=== PATIENT | male | born 1985 | race Two or more races ===

== ENCOUNTER 2023-05-06 18:23 | Emergency (ER) | payer OTHER ==
[~2023-05-06] VITALS: Ht 175.3 cm; Wt 81.0 kg
[2023-05-06 19:27] LABS: Mean Corpuscular Volume 78.2 fL (80.0-100.0)
[2023-05-06 19:29] LABS: Hematocrit 47.3 % (41.0-53.0); Hemoglobin 15.6 g/dL (13.5-17.5); Mean Corpuscular Hemoglobin 25.8 pg (28.0-32.0); Mean Corpuscular Hgb Conc. 32.9 g/dL (32.0-36.0); Red Blood Cells 6.04 10^6/uL (4.5-5.90); Red Cell Distribution Width 13.5 % (11.8-14.3); White Blood Cell 6.4 10^3/uL (4.4-10.8)
[2023-05-06 19:35] LABS: Basophils % (manual) 0 (0.0-2.0); Blast Cells 0; Eosinophils % (manual) 0 (0-7); Metamyelocytes % 0; Myelocytes % 0; Promyelocytes % 0; Reactive Lymphocytes 0
[2023-05-06 19:49] LABS: Alanine Aminotransferase 30 U/L (7-40); Albumin 3.9 g/dL (3.2-4.8); Alkaline Phosphatase 74 U/L (46-116); Anion Gap 5 (5-15); Aspartate Aminotransferase 35 U/L (13-40); BUN/Creatinine Ratio 5.5 (10.0-20.0); Bilirubin, Total 0.3 mg/dL (0.2-1.0); Blood Urea Nitrogen 6 mg/dL (9-23); Calcium 8.5 mg/dL (8.7-10.4); Carbon Dioxide 31 mmol/L (20-30); Chloride 96 mmol/L (98-107); Glucose 93 mg/dL (74-106); Potassium 3.1 mmol/L (3.5-5.1); Sodium 132 mmol/L (136-145); Total Protein 6.6 g/dL (5.7-8.2)
[2023-05-06 20:04] LABS: Band Neutrophils % (manual) 4; Lymphocytes % (manual) 27 (10.0-50.0); Monocytes % (manual) 29 (0-12)
[2023-05-06 20:05] LABS: Platelet Estimate Adequate
[2023-05-06] MEDS ORDERED: KETOROLAC TROMETH 60MG/2ML VIAL IM ONE (21:15)
[2023-05-06] MEDS ORDERED: ONDANSETRON ODT 4 MG TAB PO ONE (21:15)
[2023-05-07] MEDS ORDERED: ZOFR4T PO (00:18)
[2023-05-07 01:57] VITALS: BP 118/94; PULSE 91; RESP 16; TEMP 98.3; O2SAT 96
== END 2023-05-07 02:30 | disposition home or self-care (01) ==
LOC: ER 18:23
DX: K56.0 Paralytic ileus (principal); R10.84 Generalized abdominal pain
CPT/HCPCS: 36415; 74176; 80053; 85007; 85027; 96372; 99285; J1885; Q0162